=== PATIENT | female | born 1945 | race Two or more races ===

== ENCOUNTER 2018-02-24 08:23 | Outpatient (CLI) | payer OTHER ==
[~2018-02-24 08:23] MED LIST: NEURONTIN300 MG
== END 2018-02-24 10:45 | disposition home or self-care (01) ==
LOC: NUCLEAR 08:23
DX: I70.90 Unspecified atherosclerosis (principal); I70.91 Generalized atherosclerosis; I73.9 Peripheral vascular disease, unspecified; I70.203 Unspecified atherosclerosis of native arteries of extremities, bilateral legs

== ENCOUNTER 2018-02-24 10:13 | Outpatient (CLI) | payer OTHER | END 2018-02-24 10:18 | disposition home or self-care (01) | LOC: RAD 10:13 | DX: M19.071 Primary osteoarthritis, right ankle and foot (principal) ==

== ENCOUNTER → 2018-09-15 | Outpatient (CLI) | payer OTHER | END | disposition home or self-care (01) | LOC: NUCLEAR 09-13 13:00 | DX: E11.65 Type 2 diabetes mellitus with hyperglycemia (principal); I73.9 Peripheral vascular disease, unspecified ==

== ENCOUNTER → 2018-09-16 | Outpatient (CLI) | payer OTHER | END | disposition home or self-care (01) | LOC: NUCLEAR 09-14 13:00 | DX: I87.2 Venous insufficiency (chronic) (peripheral) (principal); E11.51 Type 2 diabetes mellitus with diabetic peripheral angiopathy without gangrene; E11.65 Type 2 diabetes mellitus with hyperglycemia; I10 Essential (primary) hypertension ==

== ENCOUNTER 2018-11-02 15:23 | Inpatient (IN) | payer OTHER ==
[~2018-11-02] VITALS: Ht 162.6 cm; Wt 98.0 kg
[2018-11-03] MEDS ORDERED: LOSARTAN POTASS25 MG PO (08:21)
[2018-11-03] MEDS ORDERED: SIMVASTATIN20 MG PO (08:21)
[2018-11-03] MEDS ORDERED: ATENOLOL-CHLOR1 EACH PO (08:22)
[2018-11-03] MEDS ORDERED: LANTUS SOL100 UNIT/1 SUBCUTANEO (08:22)
[2018-11-03] MEDS ORDERED: GABAPENTIN600 MG PO (08:22)
[2018-11-03] MEDS ORDERED: CHLORTHALIDONE25 MG PO (08:23)
[2018-11-03] MEDS ORDERED: ATENOLOL50 MG PO (08:23)
[2018-11-09] MEDS ORDERED: AMOX1TAB5 PO (08:32)
[2018-11-09] MEDS ORDERED: INTESTINEX680 M1 PO (08:32)
[2018-11-09] MEDS ORDERED: OMEPRAZOLE40 MG PO (08:32)
== END 2018-11-09 19:52 | disposition home or self-care (01) | DRG 444 ==
LOC: ER 15:23 → MEDI 21:08 → SEC-K 21:08 → MEDI 11-03 00:10
PROVIDERS: ADMIT Internal Medicine
PROC: BW21ZZZ Computerized Tomography (CT Scan) of Abdomen and Pelvis (ICD-10-PCS; principal; 2018-11-03)
PROC: 02HV33Z Insertion of Infusion Device into Superior Vena Cava, Percutaneous Approach (ICD-10-PCS; 2018-11-05)
DX: K80.00 Calculus of gallbladder with acute cholecystitis without obstruction (principal); A41.89 Other specified sepsis; N17.8 Other acute kidney failure; K52.89 Other specified noninfective gastroenteritis and colitis